=== PATIENT | female | born 1950 | race Caucasian/White ===

== ENCOUNTER → 2021-03-25 | Outpatient (CLI) | payer MEDICARE, OTHER | LOC: OPSV 08:00 → EDBD 08:00 → OPSV 09:46 → EDBD 09:46 | DX: D64.9 Anemia, unspecified (principal); R59.9 Enlarged lymph nodes, unspecified | CPT/HCPCS: 36415; 36430; J7050 ==

== ENCOUNTER 2021-03-31 14:19 | Inpatient (IN) | payer MEDICARE, OTHER ==
[~2021-03-31] VITALS: Ht 172.7 cm; Wt 85.1 kg
[2021-03-31 15:04] LABS: RED BLOOD COUNT 2.99 M/UL (4.00-5.10); WHITE BLOOD COUNT 10.8 K/UL (4.5-11.0)
[2021-03-31] MEDS ORDERED: FARXIGA10 MG PO (21:27)
[2021-03-31] MEDS ORDERED: LISINOPRIL2.5 MG PO (21:27)
[2021-03-31] MEDS ORDERED: LANTUS100 UNIT/1 SQ (21:28)
[2021-03-31] MEDS ORDERED: GLIPIZIDE5 MG PO (21:28)
[2021-03-31] MEDS ORDERED: NOVOLOG100 UNIT/1 SC ×2 (21:29)
[2021-04-01 04:25] LABS: HEMOGLOBIN 7.1 gm/dl (12.3-15.3)
[2021-04-01 04:52] LABS: RED BLOOD COUNT 2.64 M/UL (4.00-5.10)
[2021-04-02 06:26] LABS: HEMOGLOBIN 9.2 gm/dl (12.3-15.3); RED BLOOD COUNT 3.3 M/UL (4.00-5.10); WHITE BLOOD COUNT 14.8 K/UL (4.5-11.0)
--- NOTE | 2021-04-02 14:24 | NUR ---
PT WAS PREMEDICATED WITH MEDS PER MD ORDER. SEE JUL. PT CHEMO INFUSION STARTED BY ASSISTANT AT SURGERY, KRYSTLE. PT RECEIVED 42 ML BEFORE BECOMING HYPERTENSIVE 208/112, TACHYCARDIC IN THE 140'S AND DESATING TO 84% ON 4 LITERS NC. INFUSION WAS STOPPED. NS BENADRYL AND SOLUMEDROL GIVEN. PT PLACED ON TELE MONITOR AND NON RE BREATHER. MD NOTIFIED. DR CHEEK GAVE LAB ORDERS AND WANTED ICU TRANSFER. THIS WAS PASSED ON TO HOUSE. AWAITING FOR BED NOW. DR THRASHER ORDERED PULM CONSULT. AFTER APPROXIMATELY 30 MINUTES OF CLOSE MONITORING, PT VITALS RETURN TO BASELINE ASIDE FROM THE TACHYCARDIA IN 120'S. STAT EKG AND ABG DONE ALSO. WCTM. PT FAMILY AT BEDSIDE.
--- NOTE | 2021-04-02 14:28 | NUR ---
DR. CHEEK ORDER FOR C1D1 RITUXAN TODAY. REVIEWED SIDE EFFECTS WITH PATIENT AND SON, VERBALIZED UNDERSTANDING. BENADRYL 12.5MG IVP, PEPCID 20MG IV, TYLENOL 650MG PO GIVEN PRIOR TO STARTING RITUXAN. RITUXAN 350MG STARTED AT 1217 AT 50MG/HR, TITRATED PER PROTOCOL. 1301: PT BEGAN TO CHILL, AND VISIBLY SHAKING ALL OVER. RITUXAN IMMEDIATELY STOPPED. DR. CHEEK NOTIFIED. BP: 173/76, HR: 119, O2: 94%. DR. CHEEK ORDER FOR BENADRYL 25MG IVP AND SOLUMEDROL 100MG IVP, GIVEN AT 1310. PT BEGAN TO DECLINE, SHORTNESS OF BREATH, NON-REBREATHER WAS APPLIED, O2 SAT NORMALIZED. BP REMAINED HIGH, SEE VITAL SIGN CHARTING. DR. CHEEK ORDER TO SEND PT TO ICU, NOTIFIED DR. THRASHER AND PULMONOLOGY. TRAFFIC REPRESENTATIVE NOTIFIED OF BED CHANGE REQUEST. DR. CHEEK COMING TO SEE PATIENT SOON POSSIBLE.
[2021-04-02 14:43] LABS: HEMOGLOBIN 9.7 gm/dl (12.3-15.3); RED BLOOD COUNT 3.47 M/UL (4.00-5.10); WHITE BLOOD COUNT 11.9 K/UL (4.5-11.0)
[2021-04-03 05:23] LABS: HEMOGLOBIN 9.6 gm/dl (12.3-15.3); RED BLOOD COUNT 3.45 M/UL (4.00-5.10); WHITE BLOOD COUNT 12.1 K/UL (4.5-11.0)
[2021-04-04 04:59] LABS: HEMOGLOBIN 9.4 gm/dl (12.3-15.3); RED BLOOD COUNT 3.39 M/UL (4.00-5.10); WHITE BLOOD COUNT 11.7 K/UL (4.5-11.0)
[2021-04-04 05:04] LABS: BUN/CREATININE RATIO 69 (0-10)
[2021-04-05 08:20] LABS: HEMOGLOBIN 10.1 gm/dl (12.3-15.3)
[2021-04-05 08:21] LABS: RED BLOOD COUNT 3.78 M/UL (4.00-5.10)
--- NOTE | 2021-04-05 15:06 | NUR ---
PT's 02 sat continuously dropped to the 70's, respiratory therapy was called and she was started on hi-karson cannula at 8 liters. This was sufficient to bring her to approximately 86%. ordered 40mg of Lasix, an x-ray of the abdomen and chest, and an ABG. The doctor later ordered for her to be transferred to ICU.
[2021-04-05 15:12] LABS: RED BLOOD COUNT 3.68 M/UL (4.00-5.10); WHITE BLOOD COUNT 13.4 K/UL (4.5-11.0)
[2021-04-05 15:29] LABS: BUN/CREATININE RATIO 98 (0-10)
[2021-04-06 05:41] LABS: HEMOGLOBIN 9.3 gm/dl (12.3-15.3); RED BLOOD COUNT 3.34 M/UL (4.00-5.10); WHITE BLOOD COUNT 11.1 K/UL (4.5-11.0)
[2021-04-06 06:04] LABS: BUN/CREATININE RATIO 90 (0-10)
[2021-04-07 06:30] LABS: BUN/CREATININE RATIO 110 (0-10)
[2021-04-07 07:19] LABS: HEMOGLOBIN 7.6 gm/dl (12.3-15.3); WHITE BLOOD COUNT 10.7 K/UL (4.5-11.0)
[2021-04-07 07:23] LABS: RED BLOOD COUNT 2.89 M/UL (4.00-5.10)
[2021-04-08 05:32] LABS: WHITE BLOOD COUNT 8.8 K/UL (4.5-11.0)
[2021-04-08 05:38] LABS: RED BLOOD COUNT 2.35 M/UL (4.00-5.10)
[2021-04-08 05:40] LABS: HEMOGLOBIN 6.6 gm/dl (12.3-15.3)
[2021-04-09 00:02] LABS: HEMOGLOBIN 10.3 gm/dl (12.3-15.3)
[2021-04-09 04:41] LABS: HEMOGLOBIN 10.3 gm/dl (12.3-15.3)
[2021-04-09 05:11] LABS: RED BLOOD COUNT 3.64 M/UL (4.00-5.10); WHITE BLOOD COUNT 12.2 K/UL (4.5-11.0)
[2021-04-09 08:08] LABS: BUN/CREATININE RATIO 139 (0-10)
[2021-04-10 04:59] LABS: HEMOGLOBIN 10.3 gm/dl (12.3-15.3); RED BLOOD COUNT 3.6 M/UL (4.00-5.10); WHITE BLOOD COUNT 11.7 K/UL (4.5-11.0)
[2021-04-10 05:27] LABS: BUN/CREATININE RATIO 153 (0-10)
[2021-04-10 20:40] LABS: BUN/CREATININE RATIO 153 (0-10)
[2021-04-11 05:27] LABS: HEMOGLOBIN 9.9 gm/dl (12.3-15.3); RED BLOOD COUNT 3.46 M/UL (4.00-5.10); WHITE BLOOD COUNT 12.1 K/UL (4.5-11.0)
[2021-04-11 05:51] LABS: BUN/CREATININE RATIO 152 (0-10)
[2021-04-11 15:47] LABS: BUN/CREATININE RATIO 141 (0-10)
[2021-04-12 04:38] LABS: HEMOGLOBIN 9.3 gm/dl (12.3-15.3); RED BLOOD COUNT 3.26 M/UL (4.00-5.10); WHITE BLOOD COUNT 13.9 K/UL (4.5-11.0)
[2021-04-12 04:56] LABS: BUN/CREATININE RATIO 138 (0-10)
[2021-04-13 05:19] LABS: HEMOGLOBIN 8.9 gm/dl (12.3-15.3); RED BLOOD COUNT 3.07 M/UL (4.00-5.10); WHITE BLOOD COUNT 14.8 K/UL (4.5-11.0)
[2021-04-13 05:42] LABS: BUN/CREATININE RATIO 113 (0-10)
[2021-04-14 04:16] LABS: HEMOGLOBIN 7.8 gm/dl (12.3-15.3); RED BLOOD COUNT 2.87 M/UL (4.00-5.10); WHITE BLOOD COUNT 13.5 K/UL (4.5-11.0)
[2021-04-14 04:38] LABS: BUN/CREATININE RATIO 109 (0-10)
[2021-04-15 06:02] LABS: HEMOGLOBIN 9.9 gm/dl (12.3-15.3); RED BLOOD COUNT 3.41 M/UL (4.00-5.10); WHITE BLOOD COUNT 21.2 K/UL (4.5-11.0)
--- NOTE | 2021-04-15 18:45 | NUR ---
PATIENT SEEN BY SPEECH THERAPY. PER THERAPIST PT REFUSED AT TO COOPERATE AT THIS TIME . WILL ATTEMPT AGAIN IN AM NEXT DATE.
[2021-04-16 08:10] LABS: RED BLOOD COUNT 3.11 M/UL (4.00-5.10); WHITE BLOOD COUNT 16.2 K/UL (4.5-11.0)
[2021-04-16 08:21] LABS: BUN/CREATININE RATIO 106 (0-10)
[2021-04-17 05:06] LABS: HEMOGLOBIN 8.6 gm/dl (12.3-15.3); RED BLOOD COUNT 2.98 M/UL (4.00-5.10); WHITE BLOOD COUNT 14.9 K/UL (4.5-11.0)
[2021-04-18 05:17] LABS: HEMOGLOBIN 7.1 gm/dl (12.3-15.3); WHITE BLOOD COUNT 11.5 K/UL (4.5-11.0)
[2021-04-18 05:45] LABS: RED BLOOD COUNT 2.6 M/UL (4.00-5.10)
--- NOTE | 2021-04-18 14:43 | NUR ---
LUMBAR PUNCTURE AT BEDSIDE 1400, PROARI MONTILLA MD, CONSENT SIGNED PATIENT IN POSITION, SITE STERILIZED, TIME OUT COMPLETED. PROCEDURE TOLERATED WELL
[2021-04-18 15:39] LABS: GLUCOSE,CSF 199 mg/dL (50-80); TOTAL PROTEIN,CSF 132 mg/dL (20-45)
[2021-04-18 16:21] LABS: WBC (AUTOMATED 1 10^3 (0-5)
[2021-04-18 16:22] LABS: RBC (AUTOMATED) 100 10^6 (0)
[2021-04-18 16:51] LABS: WBC (AUTOMATED 2 10^3 (0-5)
[2021-04-20 05:17] LABS: HEMOGLOBIN 8.4 gm/dl (12.3-15.3); WHITE BLOOD COUNT 11.5 K/UL (4.5-11.0)
[2021-04-20 05:53] LABS: RED BLOOD COUNT 2.92 M/UL (4.00-5.10)
--- NOTE | 2021-04-21 02:54 | NUR ---
0231 PTS O2SAT DROPPED TO 85% ON 2 LITERS NASAL CANNULA RAPIDLY, O2 INCREASED PTS SAT CONTINUED TO DECREASE WELL HER HEART RATE TO THE 30'S. PT WAS BAGGED, MD NOTIFIED AND GIVEN MEDICATIONS FOLLOWS: 0233 ATROPINE 0.5MG 0234 EPI 1MG PT BECAME PEA, CHEST COMPRESSIONS INITIATED AT 0236 0239 PUSLE OBTAINED 0245 ETOMIDATE 20MG AND SUCCINLYLCHOLINE 100MG GIVEN FOR INTUBATION, 0246 ETT 7.5 @[address] HAN PLACED ON VENT PER MD ORDER
[2021-04-21 03:21] LABS: HEMOGLOBIN 7.1 gm/dl (12.3-15.3); WHITE BLOOD COUNT 12.9 K/UL (4.5-11.0)
[2021-04-21 03:22] LABS: RED BLOOD COUNT 2.45 M/UL (4.00-5.10)
[2021-04-21 03:57] LABS: BUN/CREATININE RATIO 85 (0-10)
[2021-04-22 05:58] LABS: HEMOGLOBIN 5.7 gm/dl (12.3-15.3); RED BLOOD COUNT 2.05 M/UL (4.00-5.10)
[2021-04-23 08:17] LABS: RED BLOOD COUNT 2.49 M/UL (4.00-5.10); WHITE BLOOD COUNT 7.5 K/UL (4.5-11.0)
[2021-04-23 08:18] LABS: HEMOGLOBIN 6.8 gm/dl (12.3-15.3)
[2021-04-23 16:55] LABS: HEMOGLOBIN 7.8 gm/dl (12.3-15.3); RED BLOOD COUNT 2.69 M/UL (4.00-5.10); WHITE BLOOD COUNT 7.4 K/UL (4.5-11.0)
--- NOTE | 2021-04-23 17:11 | NUR ---
PATIENT HAS NEW RASH ON BACK THAT IS RED, RAISED AND WARM TO TOUCH. DR. BUTLER NOTIFIED AND CAME TO BEDSIDE TO ASSESS. NO NEW ORDERS.
[2021-04-24 07:06] LABS: RED BLOOD COUNT 2.55 M/UL (4.00-5.10); WHITE BLOOD COUNT 6.6 K/UL (4.5-11.0)
--- NOTE | 2021-04-24 19:14 | NUR ---
1909-ORDERS FOR COMFORT CARE, PATIENT OKAY TO TERMINALLY EXTUBATE PATIENT AT THIS TIME. JOSÉ ANTONIO RT AT BEDSIDE, PATIENT PLACED ON 2LNC. WCM
--- NOTE | 2021-04-24 21:35 | NUR ---
2126-NO AUDIBLE BREATH SOUNDS, NO AUDIBLE HEART SOUNDS, PUPILS NONREACTIVE, PATIENT COLOR CHANGE. 2127-DR HAN NOTIFIED OF PATIENTS .
--- NOTE | 2021-04-24 22:48 | NUR ---
2135-REID NOTIFIED PATIENT RULED OUT FOR DONATION.
== END 2021-04-24 22:50 | disposition expired | DRG 207 ==
LOC: ER1 14:19 → CDU 18:34 → M/S 18:34 → CCU 04-02 11:16 → M/S 04-02 11:16 → CCU 04-02 16:52 → MED SURG 4 04-04 14:37 → CCU 04-05 16:21
PROVIDERS: Internal Medicine; Internal Medicine Critical Care Medicine; Internal Medicine Nephrology; Internal Medicine Pulmonary Disease; Student in an Organized Health Care Education/Training Program; ADMIT Internal Medicine
PROC: 3E0430M Introduction of Antineoplastic, Monoclonal Antibody, into Central Vein, Percutaneous Approach (ICD-10-PCS; 2021-04-02)
PROC: B24BZZZ Ultrasonography of Heart with Aorta (ICD-10-PCS; 2021-04-03)
PROC: 5A09457 Assistance with Respiratory Ventilation, 24-96 Consecutive Hours, Continuous Positive Airway Pressure (ICD-10-PCS; 2021-04-05)
PROC: 5A1955Z Respiratory Ventilation, Greater than 96 Consecutive Hours (ICD-10-PCS; 2021-04-07)
PROC: 03HY32Z Insertion of Monitoring Device into Upper Artery, Percutaneous Approach (ICD-10-PCS; 2021-04-07)
PROC: 4A133B1 Monitoring of Arterial Pressure, Peripheral, Percutaneous Approach (ICD-10-PCS; 2021-04-07)
PROC: 4A133J1 Monitoring of Arterial Pulse, Peripheral, Percutaneous Approach (ICD-10-PCS; 2021-04-07)
PROC: 0BH18EZ Insertion of Endotracheal Airway into Trachea, Via Natural or Artificial Opening Endoscopic (ICD-10-PCS; 2021-04-07)
PROC: 0B9J8ZX Drainage of Left Lower Lung Lobe, Via Natural or Artificial Opening Endoscopic, Diagnostic (ICD-10-PCS; 2021-04-08)
PROC: 0B9L8ZX Drainage of Left Lung, Via Natural or Artificial Opening Endoscopic, Diagnostic (ICD-10-PCS; 2021-04-08)
PROC: 0B9G8ZX Drainage of Left Upper Lung Lobe, Via Natural or Artificial Opening Endoscopic, Diagnostic (ICD-10-PCS; 2021-04-08)
PROC: 0W9B30Z Drainage of Left Pleural Cavity with Drainage Device, Percutaneous Approach (ICD-10-PCS; 2021-04-13)
PROC: 009U3ZX Drainage of Spinal Canal, Percutaneous Approach, Diagnostic (ICD-10-PCS; principal; 2021-04-18)
PROC: 5A12012 Performance of Cardiac Output, Single, Manual (ICD-10-PCS; 2021-04-21)
PROC: 0BH18EZ Insertion of Endotracheal Airway into Trachea, Via Natural or Artificial Opening Endoscopic (ICD-10-PCS; 2021-04-21)
PROC: 5A1945Z Respiratory Ventilation, 24-96 Consecutive Hours (ICD-10-PCS; 2021-04-21)
PROC: 30233N1 Transfusion of Nonautologous Red Blood Cells into Peripheral Vein, Percutaneous Approach (ICD-10-PCS; 2021-04-23)
DX: J80 Acute respiratory distress syndrome (principal); G93.41 Metabolic encephalopathy; J18.9 Pneumonia, unspecified organism; A41.9 Sepsis, unspecified organism; R65.21 Severe sepsis with septic shock; C83.00 Small cell B-cell lymphoma, unspecified site; E87.1 Hypo-osmolality and hyponatremia; N17.9 Acute kidney failure, unspecified; E87.0 Hyperosmolality and hypernatremia; E87.2 Acidosis; J93.83 Other pneumothorax; Z99.11 Dependence on respirator [ventilator] status; C85.14 Unspecified B-cell lymphoma, lymph nodes of axilla and upper limb; K92.2 Gastrointestinal hemorrhage, unspecified; I25.10 Atherosclerotic heart disease of native coronary artery without angina pectoris; I10 Essential (primary) hypertension; E86.0 Dehydration; E87.5 Hyperkalemia; E87.6 Hypokalemia; E11.65 Type 2 diabetes mellitus with hyperglycemia; D69.6 Thrombocytopenia, unspecified; R57.8 Other shock; L89.322 Pressure ulcer of left buttock, stage 2; L89.312 Pressure ulcer of right buttock, stage 2; Z66 Do not resuscitate; T45.1X5A Adverse effect of antineoplastic and immunosuppressive drugs, initial encounter; D63.0 Anemia in neoplastic disease; I27.20 Pulmonary hypertension, unspecified; R16.1 Splenomegaly, not elsewhere classified; R31.9 Hematuria, unspecified; L89.156 Pressure-induced deep tissue damage of sacral region; E11.649 Type 2 diabetes mellitus with hypoglycemia without coma; R62.7 Adult failure to thrive; Z86.16 Personal history of COVID-19; Z95.1 Presence of aortocoronary bypass graft; Z98.890 Other specified postprocedural states; Z90.49 Acquired absence of other specified parts of digestive tract; Z79.4 Long term (current) use of insulin; Z92.21 Personal history of antineoplastic chemotherapy; Z79.899 Other long term (current) drug therapy; Z51.5 Encounter for palliative care; Z23 Encounter for immunization
CPT/HCPCS: ECHO; 31500; 36415; 36430; 36600; 70450; 71045; 74018; 80048; 80053; 80202; 81001; 82140; 82272; 82550; 82553; 82570; 82803; 82945; 82962; 83520; 83605; 83735; 83874; 83880; 83935; 84100; 84132; 84133; 84157; 84300; 84484; 85007; 85014; 85018; 85025; 85027; 85379; 85384; 85610; 85730; 86140; 86850; 86900; 86901; 86920; 87015; 87040; 87070; 87081; 87116; 87205; 87206; 87210; 88341; 88342; 89051; 92610; 92950; 93005; 93306; 93970; 94002; 94003; 94640; 94660; 94664; 94668; 94760; 96374; 96375; 96376; 97163; 99285; A6212; C9113; G0378; J0171; J0290; J0330; J0360; J0461; J0692; J0696; J1200; J1940; J2250; J2270; J2405; J2704; J2783; J2920; J2930; J3010; J3370; J7030; J7040; J7050; J7060; J7070; J9312; P9016; P9035; P9037; P9040; P9047; U0002